=== PATIENT | male | born 1990 | race Caucasian/White ===

== ENCOUNTER → 2020-04-07 | Outpatient (CLI) | payer BC | LOC: M LABSMTC 12:33 | PROVIDERS: ATTEND Pediatrics | DX: Z20.828 Contact with and (suspected) exposure to other viral communicable diseases (principal) ==

== ENCOUNTER → 2022-09-21 | Outpatient (CLI) | payer BC, SELFPAY | LOC: M CARPUL 08:21 | PROVIDERS: ATTEND Internal Medicine | DX: R94.31 Abnormal electrocardiogram [ECG] [EKG] (principal); M54.9 Dorsalgia, unspecified ==

== ENCOUNTER 2025-02-26 08:23 | Emergency (ER) | payer BC ==
[~2025-02-26] VITALS: Ht 180.3 cm; Wt 77.3 kg
[2025-02-26 08:25] VITALS: BP 127/67; TEMP 98.3; O2SAT 100
[2025-02-26] MEDS ORDERED: AMPH1CAP16 (08:37)
[2025-02-26] MEDS ORDERED: ONDA-282 PO (10:07)
== END 2025-02-26 10:10 | disposition home or self-care (01) ==
LOC: M ED 08:23
DX: S00.03XA Contusion of scalp, initial encounter (principal); S06.0X0A Concussion without loss of consciousness, initial encounter; W19.XXXA Unspecified fall, initial encounter; Y92.009 Unspecified place in unspecified non-institutional (private) residence as the place of occurrence of the external cause; Y93.9 Activity, unspecified; Y99.9 Unspecified external cause status; F90.9 Attention-deficit hyperactivity disorder, unspecified type